=== PATIENT | male | born 1940 | race Caucasian/White ===

== ENCOUNTER 2017-03-03 10:54 | Emergency (ER) | payer OTHER ==
[~2017-03-03] VITALS: Ht 177.8 cm; Wt 101.0 kg
[~2017-03-03 10:54] MED LIST: ANALGESIC325 MG PO; Atarax,Vistaril PO; CIPRO500 MG PO; COLACE100 MG PO; DILANTIN30 MG PO; FLAGYL500 MG PO; LOTENSIN40 MG PO; PERCOCET 5/31 TABLET PO; PHENOBARBITAL32.4 MG PO; PRAVACHOL40 MG PO; Phenobarbital PO; TRAMADOL HCL50 MG PO
[2017-03-03 11:30] LABS: EOSINOPHIL COUNT 0.4 K/uL (0-0.3); HEMATOCRIT 40.3 % (38.0-50.0); IMMATURE GRANULOCYTE (%) 0.2 % (0.0-0.7); INSTRUMENT ABS NEUTROPHIL CT 3.1 K/uL; LYMPHOCYTE COUNT 2.1 K/uL (1.0-2.8); MCH 29.7 PG (29.0-34.0); MCHC 32.8 G/DL (30.0-36.0); MCV 90.8 FL (86-99); MEAN PLAT.VOLUME 9.4 uM^3 (9.0-12.4); MONOCYTE (%) 9.2 % (3-12); MONOCYTE COUNT 0.6 K/uL (0-0.8); NEUTROPHIL (%) 49.6 % (45-76); NEUTROPHIL COUNT 3.1 K/uL (1.8-6.4); PLATELET COUNT 220 K/uL (156-360); RBC DIS.WIDTH-CV 12.1 % (11.8-14.6); RED BLOOD COUNT 4.44 M/uL (4.00-5.50); WHITE BLOOD COUNT 6.3 K/uL (4.1-10.2)
[2017-03-03 11:40] LABS: CHLORIDE 104 mEq/L (99-109); POTASSIUM 4.4 mEq/L (3.7-5.4); SODIUM 137 mEq/L (136-147)
[2017-03-03 11:42] LABS: GLUCOSE 101 mg/dL (70-99)
[2017-03-03 11:43] LABS: ANION GAP 8 MEQ/L (2-14)
[2017-03-03 11:46] LABS: GFR ESTIMATE (CALCULATED) > 59 mL/min/
[2017-03-03 11:47] LABS: UREA NITROGEN (BUN) 16 mg/dL (9-23)
[2017-03-03 12:22] LABS: ADD MIUA? NO; BILIRUBIN NEGATIVE; BLOOD NEGATIVE; COLOR YELLOW ((YELLOW)); GLUCOSE (STRIP) NEGATIVE; KETONES NEGATIVE; LEUKOCYTES NEGATIVE; NITRITE NEGATIVE; PROTEIN (STRIP) NEGATIVE; SPECIFIC GRAVITY 1.009 (1.000-1.030); UROBILINOGEN 0.2 MG/DL (0.2-1.0)
[2017-03-03] MEDS ORDERED: DONNATAL1 TABLET PO (13:00)
[2017-03-03 13:51] VITALS: BP 127/72
== END 2017-03-03 13:52 | disposition home or self-care (01) ==
LOC: EME 10:54
PROVIDERS: Emergency Medicine
DX: R10.31 Right lower quadrant pain (principal); M54.5 Low back pain; R09.89 Other specified symptoms and signs involving the circulatory and respiratory systems; I10 Essential (primary) hypertension; E78.5 Hyperlipidemia, unspecified; Z79.82 Long term (current) use of aspirin; Z87.891 Personal history of nicotine dependence
CPT/HCPCS: 74176; 80048; 81003; 85025; 99281; 99284; J1885; J3010; J7040

== ENCOUNTER 2017-10-04 21:37 | Emergency (ER) | payer OTHER ==
[~2017-10-04] VITALS: Ht 177.8 cm; Wt 104.5 kg
[~2017-10-04 21:37] MED LIST changes: +DONNATAL1 TABLET PO
[2017-10-04 22:27] LABS: HEMATOCRIT 39.2 % (38.0-50.0); HEMOGLOBIN 13.2 G/DL (12.5-16.6); MCH 30.8 PG (29.0-34.0); MCHC 33.7 G/DL (30.0-36.0); MCV 91.4 FL (86-99); PLATELET COUNT 217 K/uL (156-360); RBC DIS.WIDTH-CV 12.3 % (11.8-14.6); RBC DIS.WIDTH-SD 40.7 % (39-53); RED BLOOD COUNT 4.29 M/uL (4.00-5.50); WHITE BLOOD COUNT 7.5 K/uL (4.1-10.2)
[2017-10-04 22:37] LABS: CHLORIDE 106 mEq/L (99-109); POTASSIUM 4.2 mEq/L (3.7-5.4); SODIUM 141 mEq/L (136-147)
[2017-10-04 22:39] LABS: GLUCOSE 94 mg/dL (70-99)
[2017-10-04 22:43] LABS: CREATININE 0.9 mg/dL (0.6-1.3); GFR ESTIMATE (CALCULATED) > 59 mL/min/ (58.99-99999)
[2017-10-04 22:44] LABS: UREA NITROGEN (BUN) 16 mg/dL (9-23)
[2017-10-04 22:49] LABS: TROP-I INTERPRETATION NEGATIVE; TROPONIN-I < 0.01 ng/mL (0.0-0.30)
[2017-10-05 00:20] LABS: D-DIMER ELISA < 150.00 ng/mLDDU (<230)
[2017-10-05] MEDS ORDERED: PROVENTIL,2.5 MG/3 M IH (00:52)
[2017-10-05] MEDS ORDERED: CHERATUSSIN AC473 ML PO (00:52)
[2017-10-05] MEDS ORDERED: PREDNISONE10 M1 PO (00:52)
[2017-10-05 01:10] VITALS: BP 151/64
== END 2017-10-05 01:16 | disposition home or self-care (01) ==
LOC: EME 21:37
DX: J44.1 Chronic obstructive pulmonary disease with (acute) exacerbation (principal); R91.8 Other nonspecific abnormal finding of lung field; I10 Essential (primary) hypertension; E78.5 Hyperlipidemia, unspecified; I25.2 Old myocardial infarction; Z85.46 Personal history of malignant neoplasm of prostate; Z87.891 Personal history of nicotine dependence; Z88.5 Allergy status to narcotic agent
CPT/HCPCS: 71046; 80048; 84484; 85027; 85379; 93005; 94640; J2930

== ENCOUNTER 2017-11-04 13:41 | Emergency (ER) | payer OTHER ==
[~2017-11-04] VITALS: Ht 177.8 cm; Wt 106.4 kg
[~2017-11-04 13:41] MED LIST changes: +CHERATUSSIN AC473 ML PO; +PREDNISONE10 M1 PO; +PROVENTIL,2.5 MG/3 M IH
[2017-11-04 14:20] LABS: HEMATOCRIT 39.2 % (38.0-50.0); HEMOGLOBIN 13.6 G/DL (12.5-16.6); MCH 31.2 PG (29.0-34.0); MCHC 34.7 G/DL (30.0-36.0); MCV 89.9 FL (86-99); PLATELET COUNT 228 K/uL (156-360); RBC DIS.WIDTH-CV 12.3 % (11.8-14.6); RBC DIS.WIDTH-SD 40.5 % (39-53); RED BLOOD COUNT 4.36 M/uL (4.00-5.50)
[2017-11-04 14:31] LABS: CHLORIDE 106 mEq/L (99-109); SODIUM 141 mEq/L (136-147)
[2017-11-04 14:32] LABS: GLUCOSE 103 mg/dL (70-99)
[2017-11-04 14:36] LABS: CREATININE 0.9 mg/dL (0.6-1.3); GFR ESTIMATE (CALCULATED) > 59 mL/min/ (58.99-99999)
[2017-11-04 14:37] LABS: UREA NITROGEN (BUN) 18 mg/dL (9-23)
[2017-11-04 14:40] LABS: TROP-I INTERPRETATION NEGATIVE; TROPONIN-I < 0.01 ng/mL (0.0-0.30)
[2017-11-04] MEDS ORDERED: ZITHROMAX Z-PA250 MG PO (15:56)
[2017-11-04] MEDS ORDERED: PREDNISONE20 MG PO (15:56)
[2017-11-04] MEDS ORDERED: VENTOLIN HFA18 GM IH (15:56)
[2017-11-04] MEDS ORDERED: ALBUTEROL2.5 MG/3 M IH (15:58)
[2017-11-04 16:46] VITALS: BP 128/76
== END 2017-11-04 16:50 | disposition home or self-care (01) ==
LOC: EME 13:41
DX: J20.9 Acute bronchitis, unspecified (principal); J44.0 Chronic obstructive pulmonary disease with (acute) lower respiratory infection; I10 Essential (primary) hypertension; E78.5 Hyperlipidemia, unspecified; I25.2 Old myocardial infarction; Z85.46 Personal history of malignant neoplasm of prostate; Z87.891 Personal history of nicotine dependence
CPT/HCPCS: 71046; 80048; 82948; 83605; 84484; 85027; 87040; 93005; 94640; 99281; 99285; J1100

== ENCOUNTER 2017-12-09 12:05 | Observation (INO) | payer OTHER ==
[~2017-12-09] VITALS: Ht 177.8 cm; Wt 104.8 kg
[~2017-12-09 12:05] MED LIST changes: +ALBUTEROL2.5 MG/3 M IH; +PREDNISONE20 MG PO; +VENTOLIN HFA18 GM IH; +ZITHROMAX Z-PA250 MG PO
[2017-12-09 13:08] LABS: HEMATOCRIT 38.9 % (38.0-50.0); HEMOGLOBIN 13.2 G/DL (12.5-16.6); MCH 31.2 PG (29.0-34.0); MCHC 33.9 G/DL (30.0-36.0); PLATELET COUNT 230 K/uL (156-360); RBC DIS.WIDTH-CV 12.3 % (11.8-14.6); RBC DIS.WIDTH-SD 41.1 % (39-53); RED BLOOD COUNT 4.23 M/uL (4.00-5.50); WHITE BLOOD COUNT 7.6 K/uL (4.1-10.2)
[2017-12-09 13:17] LABS: CHLORIDE 106 mEq/L (99-109); POTASSIUM 4.6 mEq/L (3.7-5.4); SODIUM 139 mEq/L (136-147)
[2017-12-09 13:19] LABS: GLUCOSE 98 mg/dL (70-99)
[2017-12-09 13:23] LABS: CREATININE 0.8 mg/dL (0.6-1.3); GFR ESTIMATE (CALCULATED) > 59 mL/min/ (58.99-99999)
[2017-12-09 13:24] LABS: UREA NITROGEN (BUN) 13 mg/dL (9-23)
[2017-12-09 13:59] LABS: TROP-I INTERPRETATION NEGATIVE; TROPONIN-I < 0.01 ng/mL (0.0-0.30)
[2017-12-09 18:45] LABS: TROP-I INTERPRETATION NEGATIVE; TROPONIN-I < 0.01 ng/mL (0.0-0.30)
[2017-12-09] MEDS ORDERED: LO-DOSE ASPIRIN81 M1 PO (19:08)
[2017-12-09] MEDS ORDERED: PRAVACHOL80 MG PO (19:10)
[2017-12-09] MEDS ORDERED: CENTRUM MEN'S1 EACH PO (19:10)
[2017-12-09] MEDS ORDERED: ALEVE220 MG PO (19:10)
[2017-12-09] MEDS ORDERED: ADVIL200 MG PO (19:11)
[2017-12-09] MEDS ORDERED: DILANTIN100 MG PO ×5 (19:11→19:20)
[2017-12-09 21:24] VITALS: BP 140/66
[2017-12-09 21:25] LABS: ALBUMIN 4.1 g/dL (3.2-4.8)
[2017-12-09 21:29] LABS: TOTAL BILIRUBIN 0.2 mg/dL (0.0-1.0)
[2017-12-09 21:30] LABS: ALKALINE PHOSPHATASE 89 IU/L (3-129)
[2017-12-09 21:33] LABS: AST (GOT) 31 IU/L (2-34); DIRECT BILIRUBIN 0.1 mg/dL (0.0-0.3)
[2017-12-09 21:34] LABS: ALT (GPT) 50 IU/L (3-49)
[2017-12-10 08:00] VITALS: BP 136/72
[2017-12-10 11:59] VITALS: BP 137/79
[2017-12-10 16:00] VITALS: BP 134/78
[2017-12-10 19:30] VITALS: BP 132/61
[2017-12-11 00:21] VITALS: BP 112/59
[2017-12-11 07:38] VITALS: BP 129/81
[2017-12-11] MEDS ORDERED: AZITHROMYCIN500 M1 PO (08:33)
[2017-12-11] MEDS ORDERED: SPIRIVA RESPIMAT4 GM IH (08:34)
[2017-12-11] MEDS ORDERED: BENZONATATE100 MG PO (08:35)
[2017-12-11] MEDS ORDERED: PREDNISONE10 MG PO (08:36)
[2017-12-11] MEDS ORDERED: GUAIFENESIN1200 M1 PO (08:37)
== END 2017-12-11 10:53 | disposition home or self-care (01) ==
LOC: EME 12:05 → 4SOUTH 19:21 → EDOF 19:21 → ENRESERV 19:24 → 4SOUTH 21:07 → ENPENDDIS 12-11 08:54 → 4SOUTH 12-11 10:53
PROVIDERS: Physician Assistant Medical
DX: J44.0 Chronic obstructive pulmonary disease with (acute) lower respiratory infection (principal); J20.9 Acute bronchitis, unspecified; K86.9 Disease of pancreas, unspecified; J44.1 Chronic obstructive pulmonary disease with (acute) exacerbation; Z87.891 Personal history of nicotine dependence; N28.89 Other specified disorders of kidney and ureter; R16.0 Hepatomegaly, not elsewhere classified; Z85.46 Personal history of malignant neoplasm of prostate; Z90.79 Acquired absence of other genital organ(s); I10 Essential (primary) hypertension; G40.909 Epilepsy, unspecified, not intractable, without status epilepticus; E78.5 Hyperlipidemia, unspecified; E04.1 Nontoxic single thyroid nodule; M19.90 Unspecified osteoarthritis, unspecified site; Z86.010 Personal history of colon polyps; Z79.82 Long term (current) use of aspirin; H91.90 Unspecified hearing loss, unspecified ear; Z88.5 Allergy status to narcotic agent
CPT/HCPCS: 70490; 71046; 71260; 80048; 80076; 84484; 85027; 85379; 87070; 87081; 87205; 87641; 93005; 93306; 94640; 94640 76; 99202; 99281; 99285; G0378; J1644; J7030; J7512